=== PATIENT | female | born 1980 | race Caucasian/White ===

== ENCOUNTER 2018-05-29 03:05 | Inpatient (IN) | payer OTHER ==
--- NOTE | 2018-05-28 19:36 | History & Physical Pre-Op ---
General Information and HPI History of Present Illness: This patient is a 37-year-old 3 para 3 with known fibroid uterus who presents today for total abdominal hysterectomy and bilateral salpingectomy. Additional was also complaints of chronic heavy menses and pelvic pain and pressure. She has no desire for future fertility. Recent Pap smear is within normal limits on ultrasound verifies a cluster of fibroids on the right posterior side of the uterus approximately 14 weeks in size. Allergies/Medications Allergies: Coded Allergies: almond (HIVES 05/28/18) Home Med list No Known Home Medications Past History Surgical History Pertinent Surgical History: D&C Review of Systems Review of Systems Constitutional: Reports: no symptoms. EENTM: Reports: no symptoms. Cardiovascular: Reports: no symptoms. Respiratory: Reports: no symptoms. GI: Reports: no symptoms. Genitourinary: Reports: see HPI. Musculoskeletal: Reports: no symptoms. Skin: Reports: no symptoms. Neurological/Psychological: Reports: no symptoms. Hematologic/Endocrine: Reports: no symptoms. Immunologic/Allergic: Reports: no symptoms. All Other Systems: Reviewed and Negative Exam & Diagnostic Data Last 24 Hrs of Vital Signs/I&O Vital signs stable afebrile Physical Exam: HEENT: Normocephalic atraumatic Chest: Clear to auscultation bilaterally Cardiovascular: Normal S1-S2 Abdomen: Soft nontender no mass palpable Pelvic: 14 week size uterus and normal adnexa Extremities: No clubbing cyanosis or edema Neuro: Nonfocal Assessment/Plan Assessment/Plan: Fibroid uterus symptomatic Plan: Total abdominal hysterectomy with bilateral salpingectomy As Ranked By This Provider Problem List: 1. Fibroid uterus
[~2018-05-29] VITALS: Ht 167.6 cm; Wt 64.9 kg
--- NOTE | 2018-05-29 08:24 | Operative Report ---
Operative/Inv Procedure Report Surgery Date: 05/29/18 Name of Procedure: cystoscopy: bilateral stent insertion Pre-Operative Diagnosis: Menorrhagia Post-Operative Diagnosis: same Estimated Blood Loss: scant Surgeon/Spinning And Winding Supervisor: MD David, Bob-urology Anesthesia: general endotracheal tube Drains: 18 fr shirley Specimens: ucx Complications: none Operative/Procedure Note Note: The patient was taken to the operating room and placed on the OR table in supine position. Timeout was performed, with the patient awake, to confirm identify, planned procedures, anesthesia, antibiotics and other pertinent jd-operative information. After adequate anesthesia, and IV antibiotics, the patient was placed in lithotomy Yellow-fin stirrups. She was then draped and prepped in the usual surgical fashion, including a vaginal prep. A 22 [place] cystoscope sheath with a 30 angle lens was inserted into the bladder without significant difficulty. The bladder was thoroughly and systematically examined, and was noted to be free of tumor, free of stone, free of fistula. Both ureteral orifices were in their orthotopic positions with clear reflux bilaterally. Under direct visualization the left orifice was intubated with a 5 [place] whistle-tip catheter, which was advanced easily into the left kidney pelvis. The right ureteral orifice was intubated with a second 5 [place] ureteral whistle tip catheter, and advanced into the right renal pelvis without difficulty. For identification purposes the blue marked stent went into the left kidney and the right ureteral stent was marked red. Urine culture was obtained and sent to pathology. The cystoscope was then removed leaving both stents in proper place. An 18 [place] Shirley catheter was inserted draining clear fluid and 10 mL of sterile water was then placed in the balloon. The ends ureteral stents, which protruded externally, were taped to the Shirley catheter in order to secure their position. The individual ureteral stents were then connected to their individual drainage devices. All sponge needle and instrument count were correct at the end of this case. The patient tolerated the procedure well. The patient was then placed in supine position with Venodyne's in place. At this point, Dr.Vander Zamora was able to proceed with the patient's surgery. Discharge Disposition: proceed with dr. bryant CC: Bob Hernandez MD
[2018-05-29 12:30] VITALS: BP 98/60
--- NOTE | 2018-05-29 13:45 | Operative Report ---
Operative/Inv Procedure Report Surgery Date: 05/29/18 Name of Procedure: Total abdominal hysterectomy and bilateral salpingectomy Pre-Operative Diagnosis: Fibroid uterus Post-Operative Diagnosis: Same Estimated Blood Loss: 250 Surgeon/Slitting Machine Operator Helper: Nicky Kidd MD,Daniel Bustamante M.D. Anesthesia: general endotracheal tube Operative/Procedure Note Note: Patient was brought to the operating room placed on the OR table in the dorsal supine position. After adequate general anesthesia was administered she was successfully intubated and placed into dorsal lithotomy. Venodyne boots were activated prior to induction of anesthesia. Dr. Hernandez placed bilateral ureteral stents and this is dictated by him. A tabs block was provided by anesthesia. The abdomen was prepped and draped in usual sterile fashion. Anesthesia skin incision was made with the scalpel taken down to the layer of the fascia. The fascia was nicked in the midline and extended bilaterally. Rectus muscles are extended. The peritoneal cavity was entered bluntly. An O'Morris-O'Kaur retractor was placed into the abdomen and the intestines were packed away with moistened laparotomy pads. The uterus is about 14 weeks size and normal ovaries appeared bilaterally. This double-tooth tenaculum was attached to the fundus of the uterus and elevated throughout the case. The right round ligament was isolated with the 0 Polysorb [id number] and tagged. The same procedures. On the left. The bladder flap was taken down sharply with Metzenbaum scissors and taken down over the lower uterine segment and cervix. Right utero-ovarian complex was clamped with a Jose De Jesus clamp transected and suture ligated with 0 Polysorb good hemostasis. Same procedures. On the left good hemostasis. There was a large fibroid noted on the left side of the uterus near the uterine artery. The right uterine artery was clamped with a Vishal clamp transected and suture ligated with 0 Polysorb. The left uterine artery was skeletonized and then clamped with a Vishal clamp transected and suture ligated with 0 Polysorb. The cardinal ligaments were then sequentially taken on both sides with Vishal clamps transection and suture ligature of 0 Polysorb. The specimen was imbricated at the cervical neck and sent to pathology. The tooth tenaculum was attached to the cervical stump and elevated throughout the remainder of the case. The cardinal ligaments were taken off the cervix sequentially with transection and suture ligature with 0 Polysorb until the vaginal cuff was approached. This 0.2 greater clamps were placed over the vagina and the specimen was transected and sent to pathology. The vaginal cuff was oversewn using 0 Polysorb in a running locking fashion. She was then paid to the right fallopian tube which was elevated with Torrington clamp and clamped doubly with greater clamps and transected. A free tie suture of 0 Polysorb and a second suture ligature of 0 Polysorb were placed same procedure was repeated on the left good hemostasis. The pelvis and abdomen were copiously irrigated and all suture sites remained hemostatic. The retractors and laparotomy pads removed peritoneum was closed using 2-0 Polysorb in a running locking fashion. Fascia was closed using 0 Polysorb in a running nonlocking fashion subcutaneous tissues were irrigated and coagulated were needed and the skin was closed using ivory. Dry sterile dressing was applied to the wound. The vagina was examined and noted to be hemostatic as well. As then awakened and sent to recovery in good condition. Tips of both ureteral stents were noted at the end of the procedure All needle, sponge, and aspirin counts were correct at the end of the procedure
[2018-05-29 14:37] VITALS: BP 100/62
[2018-05-29 16:30] VITALS: BP 96/54
[2018-05-29 18:30] VITALS: BP 106/54
[2018-05-29 20:30] VITALS: BP 102/60
[2018-05-29 22:30] VITALS: BP 86/50
[2018-05-30 00:04] VITALS: BP 92/50
[2018-05-30 02:05] VITALS: BP 90/48
[2018-05-30 04:05] VITALS: BP 80/42
[2018-05-30 05:55] VITALS: BP 80/60
[2018-05-30 07:33] LABS: ABSOLUTE BASOPHIL COUNT 0 /CUMM (0.0-0.2); ABSOLUTE EOSINOPHIL COUNT 0 /CUMM (0.0-0.7); ABSOLUTE GRANULOCYTE CT 11.4 /CUMM (1.4-6.5); ABSOLUTE LYMPH COUNT 1.2 /CUMM (1.2-3.4); ABSOLUTE MONOCYTE COUNT 0.9 /CUMM (0.10-0.60); BASOPHIL % 0.2 % (0.0-2.0); EOSINOPHIL % 0.1 % (0-5); GRANULOCYTE % 83.9 % (42.2-75.2); MEAN CORPUSCULAR HGB 29.8 PG (27.0-31.0); MEAN CORPUSCULAR HGB CONC 34.2 G/DL (33.0-37.0); MEAN CORPUSCULAR VOLUME 86.9 FL (81.0-99.0); MEAN PLATELET VOLUME 8.2 FL (7.4-10.4); PLATELET COUNT 230 /CUMM (130-400); RBC DISTRIBUTION WIDTH 13.1 % (11.5-14.5); RED BLOOD CELL CT 3.44 /CUMM (4.20-5.40)
[2018-05-30 07:52] LABS: HEMATOCRIT 29.9 % (37-47); WHITE BLOOD CELL COUNT 13.6 /CUMM (4.8-10.8)
[2018-05-30 13:43] VITALS: BP 80/60
[2018-05-30 22:03] VITALS: BP 100/60
[2018-05-31 06:19] VITALS: BP 90/56
[2018-05-31] MEDS ORDERED: IBUPROFEN800 M1 PO (08:39)
[2018-05-31] MEDS ORDERED: DOCUSATE SODIU100 M3 PO (08:39)
[2018-05-31] MEDS ORDERED: SULFAMETHOXAZO1 EAC1 PO (08:39)
--- NOTE | 2018-05-31 08:42 | PN- General Surgery ---
Subjective Subjective: pos flatus Review of Systems: urine Cx gram neg rods s/p Ceftriaxone 1gm x1 Objective Vital Signs and I&Os Vital Signs Date Time Temp Pulse Resp B/P B/P Pulse O2 O2 Flow FiO2 Mean Ox Delivery Rate 05/31 0619 98.8 60 18 90/56 98 Room Air 05/30 2203 97.9 69 18 100/60 100 05/30 1343 97.6 74 20 80/60 100 Room Air Intake & Output 05/31 1600 05/31 0800 05/31 0000 05/30 1600 05/30 0805/30 0000 Intake Total 50 434 843 1243 600 Output Total 620 751 3427 680 100 Balance -450 -650 -245 370 500 Intake, IV 0 375 1000 500 Intake, Oral 50 300 480 50 100 Number 0 0 Bowel Movements Output, Urine 441 999 9383 680 100 Patient 143 lb Weight Physical Exam: incision c/d/i ext nt Assessment/Plan Assessment/Plan s/p KATHRYN pod2 with UTI discharge home Problem List: 1. Fibroid uterus Core Measures Venous Thromboembolism VTE Risk Factors Surgery No Mechanical VTE Prophylaxis d/t N/A MechProphylax Ordered No VTE Pharm Prophylaxis d/t Bleeding (Active)
== END 2018-05-31 13:20 | DRG 742 ==
LOC: SDA 03:05 → ENRESERV 10:13 → ENTRNSPT 12:02 → EDTRNSPTSTS 12:03 → EDTRNSPT 12:03 → 2NA 12:13 → CMPTRNSPT 12:50 → ENPENDDIS 05-31 08:37 → 2NA 05-31 13:20
PROVIDERS: Obstetrics & Gynecology
PROC: 0T788DZ Dilation of Bilateral Ureters with Intraluminal Device, Via Natural or Artificial Opening Endoscopic (ICD-10-PCS; principal; 2018-05-29)
PROC: 0UT90ZZ Resection of Uterus, Open Approach (ICD-10-PCS; 2018-05-29)
PROC: 0UT70ZZ Resection of Bilateral Fallopian Tubes, Open Approach (ICD-10-PCS; 2018-05-29)
DX: D25.9 Leiomyoma of uterus, unspecified (principal); N39.0 Urinary tract infection, site not specified; N92.0 Excessive and frequent menstruation with regular cycle
CPT/HCPCS: 2NAP; 36415; 36592; 81025; 87086; J0131; J0694; J0696; J1170; J1200; J1885; J2405; J3250; J3490